=== PATIENT | male | born 1960 | race Two or more races ===

== ENCOUNTER 2020-10-29 17:26 | Emergency (ER) | payer OTHER, SELFPAY ==
[~2020-10-29] VITALS: Ht 165.1 cm; Wt 78.2 kg
[2020-10-29 18:40] VITALS: BP 112/74
== END 2020-10-29 19:12 | disposition home or self-care (01) ==
LOC: ED 18:33
DX: T51.0X1A Toxic effect of ethanol, accidental (unintentional), initial encounter (principal); R11.0 Nausea; Y92.89 Other specified places as the place of occurrence of the external cause
CPT/HCPCS: 99281